=== PATIENT | female | born 1995 | race Caucasian/White ===

== ENCOUNTER 2018-12-23 22:20 | Emergency (ER) | payer BC ==
--- NOTE | 2018-12-24 00:28 | EDPHY ---
H & P Stated Complaint: with acitivity SOB and heart palpations with fatigue for 2 days Time Seen by Provider: 12/24/18 00:28 HPI/ROS: HPI CHIEF COMPLAINT: Fatigue HISTORY OF PRESENT ILLNESS: Patient is a 23-year-old female, she is visiting from [place], she was in [place] and then arrived here in [place] 3 days ago. She is complaining of fatigue and feeling her heart beat. She denies any chest pain or shortness of breath or pleuritic pain. Denies fever. Denies nausea vomiting or diarrhea. She does complain of fatigue. She also noticed when she exerts herself she gets short of breath. Patient is concerned she may be anemic. Past Medical History: Denies medical history Past Surgical History: Denies surgical history Social History: Denies daily use of drugs alcohol tobacco from the [place]. Family History: Noncontributory ROS REVIEW OF SYSTEMS: 10 Systems were reviewed and negative with the exception of the elements mentioned in the history of present illness. Exam Constitutional triage nursing summary reviewed, vital signs reviewed, awake/ alert. Eyes normal conjunctivae and sclera, EOMI, PERRLA. HENT normal inspection, atraumatic, moist mucus membranes, no epistaxis, neck supple/ no meningismus, no raccoon eyes. Respiratory clear to auscultation bilaterally, normal breath sounds, no respiratory distress, no wheezing. Cardiovascular rate normal, regular rhythm, no murmur, no edema, distal pulses normal. Gastrointestinal soft, non-tender, no rebound, no guarding, normal bowel sounds, no distension, no pulsatile mass. Genitourinary no CVA tenderness. Musculoskeletal no midline vertebral tenderness, full range of motion, no calf swelling, no tenderness of extremities, no meningismus, good pulses, neurovascularly intact. Skin pink, warm, & dry, no rash, skin atraumatic. Neurologic awake, alert and oriented x 3, AAOx3, moves all 4 extremities equally, motor intact, sensory intact, CN II-XII intact, normal cerebellar, normal vision, normal speech. Psychiatric normal mood/affect. Heme/Lymph/Immune no lymphadenopathy. Differential Diagnosis: Includes but is not limited to in a particular order altitude illness, dehydration, electrolyte disturbance, infection, UTI, Medical Decision Making: Plan for this patient IV establishment IV fluid bolus , EKG, chest x-ray, labs, electrolytes. Re-evaluation: EKG interpretation by me on record in [employer] system. Impression time of EKG 2328: Sinus rhythm rate of 71 no signs of acute ischemia no signs of cardiac arrhythmia. Chest x-ray two view reviewed by myself negative for acute cardiopulmonary disease. D-dimer negative. Negative test H&H are stable no severe anemia Troponin 0.0 Patient's EKG is unremarkable Chest x-ray unremarkable. Patient re-evaluated 4:11 a.m. She is eager for discharge requesting discharge she denies any complaints and she ambulated well. She denies any chest pain or shortness of breath at this time. She does states she still feels fatigued. This is most likely altitude illness. She is due to fly back to [place] tomorrow. I do recommend she rest, stay well-hydrated, returns to the emergency room if worsening symptoms. I do believe her cause of illness is altitude illness. I do recommend she stays well hydrated rest, drink lots of fluids. Goes to lower elevation as needed. Additionally discussed return precautions return emergency room she develops worsening symptoms includes vomiting, fever, not doing well. Source: Patient - Personal History LMP (Females 10-55): Now Current Tetanus/Diphtheria Vaccine: Yes Current Tetanus Diphtheria and Acellular Pertussis (TDAP): Yes - Medical/Surgical History Hx Asthma: No Hx Chronic Respiratory Disease: No Hx Diabetes: No Hx Cardiac Disease: No Hx Renal Disease: No Hx Cirrhosis: No Hx Alcoholism: No Hx HIV/AIDS: No Hx Splenectomy or Spleen Trauma: No Other PMH: denies - Social History Smoking Status: Never smoked Constitutional: Initial Vital Signs Temperature (C) 37.0 C 12/23/18 22:25 Heart Rate 77 12/23/18 22:25 Respiratory Rate 16 12/23/18 22:25 Blood Pressure 124/86 H 12/23/18 22:25 O2 Sat (%) 100 12/23/18 22:25 O2 Delivery Mode Room Air Allergies/Adverse Reactions: Penicillins Allergy (Verified 12/23/18 22:27) Home Medications: Medication Instructions Recorded Adderall 10 MG (*) 12/23/18 Medical Decision Making - Data Points Laboratory Results: Laboratory Results 12/24/18 01:33 12/24/18 00:36 Medications Given: Discontinued Medications Sodium Chloride (Ns) 1,000 mls @ 0 mls/hr IV EDNOW ONE; Wide Open PRN Reason: Protocol Stop: 12/24/18 00:37 Last Admin: 12/24/18 00:57 Dose: 1,000 mls Point of Care Test Results: Chemistry 12/24/18 02:09 POC Troponin I 0.00 ng/mL ng/mL (0.00-0.08) Departure - Departure Disposition: Home, Routine, Self-Care Clinical Impression: Dehydration Altitude illness Qualifiers: Encounter type: initial encounter Qualified Code(s): T70.29XA - Other effects of high altitude, initial encounter Condition: Good Instructions: Dehydration (ED), Mountain Sickness (ED) Additional Instructions: 1. Recommend resting. 2. Recommend staying well hydrated. Drink lots of fluids. 3. Return to the emergency room if you have worsening symptoms, this includes vomiting, not doing well Referrals: RICHY LANDA [Other] - As per Instructions
[2018-12-24] MEDS ORDERED: NS 1,000 ML IV ONE (00:36)
[2018-12-24 01:41] LABS: PLATELET COUNT 217 10^3/uL (150-400)
[2018-12-24 04:34] VITALS: BP 127/73
--- NOTE | 2018-12-25 07:47 | CPEKG ---
Test Reason : OPEN Blood Pressure : / mmHG Vent. Rate : 071 BPM Atrial Rate : 071 BPM P-R Int : 120 ms QRS Dur : 077 ms QT Int : 411 ms P-R-T Axes : 060 084 059 degrees QTc Int : 447 ms Sinus rhythm Confirmed by Felton Giron ([id number]) on 12/25/2018 7:45:58 AM Referred By: PHYSICIAN ED Confirmed By:Felton Giron
== END 2018-12-24 04:34 | disposition home or self-care (01) ==
DX: T70.29XA Other effects of high altitude, initial encounter (principal); E86.9 Volume depletion, unspecified
CPT/HCPCS: 84484-ER